=== PATIENT | female | born 1985 | race Caucasian/White ===

== ENCOUNTER 2019-03-16 19:25 | Emergency (ER) | payer MEDICAID, SELFPAY ==
[2019-03-16 19:26] VITALS: BP 124/81; PULSE 82; RESP 18; TEMP 36.8; O2SAT 97; BMI 28.7
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
--- NOTE | 2019-03-16 19:43 | ED.DEP ---
ED Disposition - Plan for ED Patient: Instructions: Insect Bite Prescriptions: DiphenhydrAMINE [Benadryl] 25 mg PO TID PRN PRN #15 cap PRN Reason: Itching Prescription Printed Cephalexin [Keflex] 500 mg PO Q6 #20 cap Prescription Printed Referrals: Bri Cabral [NON-STAFF] -
[2019-03-16] MEDS: DiphenhydrAMINE 25 MG Capsule PO (20:16)
[2019-03-16] MEDS: Cephalexin Suspension 250 MG/5 ML PO.SYRINGE 500 MG PO (20:16)
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
== END 2019-03-16 20:21 | disposition home or self-care (01) ==
LOC: ED 19:53
PROVIDERS: Emergency Provider Emergency Medicine
DX: T14.8XXA Other injury of unspecified body region, initial encounter (principal); W57.XXXA Bitten or stung by nonvenomous insect and other nonvenomous arthropods, initial encounter; Y93.9 Activity, unspecified; F41.9 Anxiety disorder, unspecified; F12.90 Cannabis use, unspecified, uncomplicated
CPT/HCPCS: 99285

== ENCOUNTER 2019-03-17 11:20 | Emergency (ER) | payer MEDICAID, SELFPAY ==
[2019-03-16 19:26] VITALS: BMI 28.7
[2019-03-17 11:21] VITALS: BP 122/79; PULSE 78; RESP 16; TEMP 36.8; O2SAT 99; BMI 29.7
--- NOTE | 2019-03-17 11:33 | ED.DCSUM_ITS ---
- ER Visit Summary Date of Service: 03/17/19 Chief Complaint: Bed bug bites History of Present Illness: The patient is a 33 F who has bedbug bites throughout her whole body. It started about 6 days ago and is getting worse. She has moved out of her current living situation so the exposure is now gone. She continues to have itching throughout. She was seen last night and was given Benadryl and Keflex. She has not filled these medications. She states that she moved here for alcohol rehab but she left rehab early. She has been drinking at home. She is concerned she may be dehydrated. Physical Examination: Vital signs are reviewed. Heart is regular rate and rhythm. Lungs clear to auscultation. Abdomen soft nontender. Skin exam reveals diffuse bedbug bites all over her body. She has local reactions throughout. There is some mild erythema surrounding her left scapular area. Her neurologic exam is normal. Test Results: None performed Emergency Department Course and Treatment: The patient will be treated with a liter of IV fluid and an IV dose of Kefzol. She will fill the Benadryl and Keflex prescriptions given to her last night. She will need to follow-up with her PCP. Treatment Plan: [] Disposition: Discharge Impression: Local reactions to bug bites This note was generated with [employer] dictation software. It may contain incorrect words, spelling, and punctuation that were not noted in review of the chart prior to signing ED Disposition - Plan for ED Patient: Referrals: NOT,DEFINED [Primary Care Provider] -
--- NOTE | 2019-03-17 11:36 | ED.DEP ---
ED Disposition - Plan for ED Patient: Disposition: Home or Assisted Living Instructions: Insect Bite Referrals: NOT,DEFINED [Primary Care Provider] -
[2019-03-17] MEDS: 0.9% Normal Saline 1,000 ML 999 ML IV (11:50)
[2019-03-17] MEDS: Cefazolin 1 GM/50 ML BAG IV (12:18)
--- NOTE | 2019-03-17 13:40 | CM.ED ---
SOCIAL WORK REFERRAL FROM NURSING TO MEET WITH PATIENT REGARDING RESOURCES PATIENT IS HOMELESS. PATIENT LEFT BEFORE SEEN BY SW. NURSING UPDATED. DIOR ZIMMERMAN, ENTRY TECH, WAGON DRIVER SALESPERSON.
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
== END 2019-03-17 14:07 | disposition home or self-care (01) ==
LOC: ED 11:42
PROVIDERS: Emergency Provider Emergency Medicine
DX: T14.8XXA Other injury of unspecified body region, initial encounter (principal); W57.XXXA Bitten or stung by nonvenomous insect and other nonvenomous arthropods, initial encounter; Y93.9 Activity, unspecified; Y92.009 Unspecified place in unspecified non-institutional (private) residence as the place of occurrence of the external cause; E86.0 Dehydration; Z72.89 Other problems related to lifestyle
CPT/HCPCS: 96365; 96366; 99285; J7030; J7040; A4216; J3490